=== PATIENT | female | born 1960 | race Caucasian/White ===

== ENCOUNTER 2018-10-02 06:57 | Day surgery (SDC) | payer OTHER ==
[~2018-10-02] VITALS: Ht 162.6 cm; Wt 99.8 kg
[2018-10-02] MEDS ORDERED: MIDAZOLAM 2 MG/2 ML VIAL ONE (08:26)
[2018-10-02] MEDS ORDERED: LIDOCAINE 2% 100 MG/5 ML UJET TP ONE (08:26)
[2018-10-02] MEDS ORDERED: fentaNYL 0.05 MG/ML VIAL ONE (08:26)
== END 2018-10-02 09:50 | disposition home or self-care (01) ==
LOC: MDS 06:57 → MMU 07:09 → MDS 09:50
PROVIDERS: ATTEND Internal Medicine Gastroenterology
DX: D12.2 Benign neoplasm of ascending colon (principal); D12.3 Benign neoplasm of transverse colon; E66.9 Obesity, unspecified; M19.90 Unspecified osteoarthritis, unspecified site; Z79.899 Other long term (current) drug therapy; Z68.37 Body mass index [BMI] 37.0-37.9, adult; Z98.890 Other specified postprocedural states
CPT/HCPCS: 45385; J3010; J2250